=== PATIENT | female | born 1970 | race Caucasian/White ===

== ENCOUNTER → 2017-03-22 | Outpatient (CLI) | payer BC ==
--- NOTE | 2017-03-23 08:53 | MM ---
Reason for exam: screening (asymptomatic). Last mammogram was performed 1 year and 3 months ago. History: Patient had first child at age 34. Took other hormone beginning at age 32. Physical Findings: A clinical breast exam by your physician is recommended on an annual basis and results should be correlated with mammographic findings. MG Screening Mammo w CAD Bilateral CC and MLO view(s) were taken. Prior study comparison: December 11, 2015, bilateral MG screening mammo w CAD. December 21, 2013, [facility] DIGITAL BILATERAL MAMMOGRAM w/CAD. November 23, 2013, bilateral digital screening mammo w/CAD. October 13, 2012, bilateral digital screening mammo w/CAD. There are scattered fibroglandular densities. Stable global asymmetry in the left upper outer quadrant. No significant changes when compared with prior studies. ASSESSMENT: Negative, BI-RAD 1 RECOMMENDATION: Routine screening mammogram of both breasts in 1 year.
== END | disposition home or self-care (01) ==
LOC: RADMAMWWP 16:26
PROVIDERS: ATTEND Obstetrics & Gynecology
DX: Z12.31 Encounter for screening mammogram for malignant neoplasm of breast (principal)

== ENCOUNTER → 2018-11-07 | Outpatient (CLI) | payer BC ==
--- NOTE | 2018-11-08 10:40 | MM ---
Reason for exam: screening (asymptomatic). Last mammogram was performed 1 year and 7 months ago. History: Patient had first child at age 34. Took other hormone beginning at age 32. Physical Findings: A clinical breast exam by your physician is recommended on an annual basis and results should be correlated with mammographic findings. MG 3D Screening Mammo W/Cad Bilateral CC, MLO, and XCCL view(s) were taken. Prior study comparison: March 22, 2017, bilateral MG screening mammo w CAD. December 11, 2015, bilateral MG screening mammo w CAD. The breast tissue is heterogeneously dense. This may lower the sensitivity of mammography. There are benign appearing round calcifications bilaterally. There is no discrete abnormality. ASSESSMENT: Benign, BI-RAD 2 RECOMMENDATION: Routine screening mammogram of both breasts in 1 year.
== END ==
LOC: RADMAMWWP 11:01
PROVIDERS: ATTEND Obstetrics & Gynecology
DX: Z12.31 Encounter for screening mammogram for malignant neoplasm of breast (principal)
CPT/HCPCS: 77063; 77067

== ENCOUNTER → 2021-04-09 | Outpatient (CLI) | payer BC ==
--- NOTE | 2021-04-10 15:00 | MM ---
Reason for exam: screening (asymptomatic). Last mammogram was performed 2 years and 5 months ago. History: Patient had first child at age 34. Took other hormone beginning at age 32. Physical Findings: A clinical breast exam by your physician is recommended on an annual basis and results should be correlated with mammographic findings. MG 3D Screening Mammo W/Cad Bilateral CC and MLO view(s) were taken. Prior study comparison: November 07, 2018, bilateral MG 3d screening mammo w/cad. March 22, 2017, bilateral MG screening mammo w CAD. There are scattered fibroglandular densities. ASSESSMENT: Negative, BI-RAD 1 RECOMMENDATION: Routine screening mammogram of both breasts in 1 year.
== END | disposition home or self-care (01) ==
LOC: RADMAMWWP 08:26
PROVIDERS: ATTEND Obstetrics & Gynecology
DX: Z12.31 Encounter for screening mammogram for malignant neoplasm of breast (principal); Z79.899 Other long term (current) drug therapy
CPT/HCPCS: 77063; 77067

== ENCOUNTER → 2022-04-27 | Outpatient (CLI) | payer BC ==
--- NOTE | 2022-04-28 08:45 | MM ---
Reason for Exam: Screening (asymptomatic). Last mammogram was performed 1 year(s) and 1 month(s) ago. Patient History: Menarche at age 14. First Full-Term at age 34. Late child-bearing (after 30). Risk Values: Shi 5 year model risk: 1.3%. NCI Lifetime model risk: 12.3%. Prior Study Comparison: 03/22/2017 Bilateral Screening Mammogram, [facility]. 11/07/2018 Bilateral Screening Mammogram, [facility]. 04/09/2021 Bilateral Screening Mammogram, [facility]. Tissue Density: The breast tissue is almost entirely fat. Findings: Analyzed By CAD. Benign-appearing calcifications bilaterally. There is no suspicious group of microcalcifications or new suspicious mass in either breast. Overall Assessment: Negative, BI-RAD 1 Management: Screening Mammogram of both breasts in 1 year. A clinical breast exam by your physician is recommended on an annual basis and results should be correlated with mammographic findings. Electronically signed and approved by: Sam Wolfe DO
== END | disposition home or self-care (01) ==
LOC: RADMAMWWP 16:21
PROVIDERS: ATTEND Obstetrics & Gynecology
DX: Z12.31 Encounter for screening mammogram for malignant neoplasm of breast (principal); R92.1 Mammographic calcification found on diagnostic imaging of breast
CPT/HCPCS: 77063; 77067

== ENCOUNTER → 2023-07-22 | Outpatient (CLI) | payer BC ==
--- NOTE | 2023-07-30 10:41 | MM ---
Reason for Exam: Screening (asymptomatic). Last mammogram was performed 1 year(s) and 2 month(s) ago. Patient History: Menarche at age 14. First Full-Term at age 34. Late child-bearing (after 30). Premenopausal. Patient has history of breast feeding. Last menstrual period: 07/20/2023 Risk Values: Shi 5 year model risk: 1.3%. NCI Lifetime model risk: 12.1%. Prior Study Comparison: 12/11/2015 Bilateral Screening Mammogram, [facility]. 03/22/2017 Bilateral Screening Mammogram, [facility]. 11/07/2018 Bilateral Screening Mammogram, [facility]. 04/09/2021 Bilateral Screening Mammogram, [facility]. 04/27/2022 Bilateral MG 3D screening mammo w/cad, [facility]. Tissue Density: There are scattered fibroglandular densities. Findings: Analyzed By CAD. There is no suspicious group of microcalcifications or new suspicious mass. Overall Assessment: Negative, BI-RAD 1 Management: Screening Mammogram of both breasts in [address] [facility] will attempt to contact patient to return for supplemental views and ultrasound if indicated. Patient should continue monthly self-breast exams. A clinical breast exam by your physician is recommended on an annual basis. This exam should not preclude additional follow-up of suspicious palpable abnormalities. Note on Shi scores and lifetime risk: 1. A Shi score greater than 3% is considered moderate risk. If this is the case, consider specialist referral to assess eligibility for a risk reducing agent. 2. If overall lifetime risk for the development of breast cancer is 20% or higher, the patient may qualify for future screening with alternating mammogram and breast MRI. Electronically signed and approved by: Sam Wolfe DO
== END | disposition home or self-care (01) ==
LOC: RADMAMWWP 11:04
PROVIDERS: ATTEND Obstetrics & Gynecology
DX: Z12.31 Encounter for screening mammogram for malignant neoplasm of breast (principal)
CPT/HCPCS: 77063; 77067

== ENCOUNTER → 2025-04-12 | Outpatient (CLI) | payer BC ==
--- NOTE | 2025-04-12 09:52 | MM ---
Reason for Exam: Screening (asymptomatic). Last mammogram was performed 1 year(s) and 9 month(s) ago. Patient History: Menarche at age 14. First Full-Term at age 34. Late child-bearing (after 30). Premenopausal. Patient has history of breast feeding. Risk Values: Shi 5 year model risk: 1.5%. NCI Lifetime model risk: 11.8%. Prior Study Comparison: 04/09/2021 Bilateral Screening Mammogram, [facility]. 04/27/2022 Bilateral MG 3D screening mammo w/cad, [facility]. 07/22/2023 Bilateral MG 3D screening mammo w/cad, [facility]. Tissue Density: There are scattered areas of fibroglandular density. Findings: Analyzed By CAD. There is no suspicious group of microcalcifications or new suspicious mass in either breast. Table chronic nodularity. Overall Assessment: Benign, BI-RAD 2 Management: Screening Mammogram of both breasts in 1 year. . Patient should continue monthly self-breast exams. A clinical breast exam by your physician is recommended on an annual basis. This exam should not preclude additional follow-up of suspicious palpable abnormalities. Note on Shi scores and lifetime risk: 1. A Shi score greater than 3% is considered moderate risk. If this is the case, consider specialist referral to assess eligibility for a risk reducing agent. 2. If overall lifetime risk for the development of breast cancer is 20% or higher, the patient may qualify for future screening with alternating mammogram and breast MRI. [facility], , 04/12/2025 9:48 AM. Electronically signed and approved by: Shailesh Pate M.D. Radiolog[facility]
== END | disposition home or self-care (01) ==
LOC: RADMAMWWP 09:11
PROVIDERS: ATTEND Obstetrics & Gynecology
DX: Z12.31 Encounter for screening mammogram for malignant neoplasm of breast (principal); R92.323 Mammographic fibroglandular density, bilateral breasts
CPT/HCPCS: 77063; 77067